=== PATIENT | female | born 1985 | race Caucasian/White ===

== ENCOUNTER 2018-03-21 17:40 | Emergency (ER) | payer BC ==
[2018-03-21 17:51] VITALS: BP 119/80
--- NOTE | 2018-03-21 18:28 | ED ---
Upper Extremity Pain - HPI Summary HPI Summary: [id number] patient presents with pain at the base of her right thumb over the past 4 days. She reports this was gradual in onset and has gotten progressively worse. No pain at rest however she notices pain is worse with opposing movements such as gripping her magallon to turn it in a door, etc. She denies any known acute injury however admits she uses her hands throughout the day at work, typing, etc. She has also been active at her local gym. She denies redness, swelling, numbness, tingling, weakness. No history of injury here. She has tried wearing an elastic wrist brace which believes is making it worse. She also admits to taking ibuprofen once this morning which did help the pain however since wearing off she notices pain again with certain movements account. Does not want additional ibuprofen at this time. Has not been able to rest her hands. - History of Current Complaint Chief Complaint: UCUpperExtremity Stated Complaint: WRIST PAIN Time Seen by Provider: 03/21/18 18:10 Hx Obtained From: Patient - Allergies/Home Medications Allergies/Adverse Reactions: Allergies Allergy/AdvReac Type Severity Reaction Status Date / Time azithromycin [From Zithromax] Allergy Hives Verified 03/21/18 17:51 Home Medications: Home Medications Ibuprofen 800 mg PO 03/21/18 [History] Multivitamin [Multivitamins] 03/21/18 [History] PMH/Surg Hx/FS Hx/Imm Hx Previously Healthy: Yes Endocrine/Hematology History: Denies: Hx Anticoagulant Therapy, Hx Blood Disorders, Autoimmune Disease Infectious Disease History: No Infectious Disease History: Denies: Traveled Outside the [place] in Last 30 Days - Social History Occupation: Employed Full-time - 5-6 days/week Lives: Dormitory/Roommates Alcohol Use: Rare Hx Substance Use: No Substance Use Type: Reports: None Hx Tobacco Use: Yes - quit 1 year ago Smoking Status (MU): Former Smoker Review of Systems Constitutional: Negative Negative: Fever, Chills Positive: no symptoms reported Positive: Arthralgia Skin: Negative Neurological: Negative Psychological: Normal All Other Systems Reviewed And Are Negative: Yes Physical Exam Triage Information Reviewed: Yes Vital Signs On Initial Exam: Initial Vitals Temp Pulse Resp BP Pulse Ox 98.9 F 61 18 119/80 97 03/21/18 17:45 03/21/18 17:45 10/30/18 17:45 03/21/18 17:45 03/21/18 17:45 Vital Signs Reviewed: Yes Appearance: Positive: Well-Appearing, No Pain Distress, Well-Nourished Skin: Positive: Warm, Skin Color Reflects Adequate Perfusion, Dry - no erythema , no ecchymosis, no lesions, no edema over the affected area Head/Face: Positive: Normal Head/Face Inspection Eyes: Positive: EOMI ENT: Positive: Hearing grossly normal Respiratory/Lung Sounds: Positive: Breath Sounds Present Cardiovascular: Positive: Pulses are Symmetrical in both Upper and Lower Extremities Musculoskeletal: Positive: Strength/ROM Intact - pain w/ resisted Rt thumb ROM w / extension and abduction (mild); (-) Finkelsteins, Pain @ - extensor tendon and base of thumb joint (basilar joint) TTP; no thenar eminance atrophy Neurological: Positive: Normal, Sensory/Motor Intact, Alert, Oriented to Person Place, Time, CN Intact II-III, Reflexes Intact Psychiatric: Positive: Normal Diagnostics - Vital Signs Vital Signs Temp Pulse Resp BP Pulse Ox 03/21/18 17:45 98.9 F 61 18 119/80 97 - Laboratory Lab Statement: Any lab studies that have been ordered have been reviewed, and results considered in the medical decision making process. Course/Dx - Course Course Of Treatment: wet read: no acute or chronic findings of the thumb - Diagnoses Provider Diagnoses: Thumb tendonitis Discharge - Sign-Out/Discharge Documenting (check all that apply): Patient Departure All imaging exams completed and their final reports reviewed: Yes - Discharge Plan Condition: Stable Disposition: HOME Patient Education Materials: Tendinitis (ED) Forms: *Work Release Referrals: Ronnie Martines MD [Primary Care Provider] - Additional Instructions: Rest, ice, wear splint during activities - gentle stretches while out of splint You may take ibuprofen with food and use topical analgesics such as biofreeze, arnica, etc for relief of pain/swelling Follow-up with occupational therapy to aid in recovery from injury - call tomorrow to schedule an appointment. If you need a referral, call your PCP. - Billing Disposition and Condition Condition: STABLE Disposition: Home - Attestation Statements Provider Attestation: I was available for consult. This patient was seen by the [facility]. The patient was not presented to, seen by, or examined by me. -Brooke
--- NOTE | 2018-03-21 20:38 | ED ---
Course/Dx - Course Course Of Treatment: wet read: no acute or chronic findings of the thumb - Diagnoses Provider Diagnoses: Thumb tendonitis Discharge - Sign-Out/Discharge Documenting (check all that apply): Post-Discharge Follow Up All imaging exams completed and their final reports reviewed: No - Discharge Plan Condition: Stable Disposition: HOME Patient Education Materials: Tendinitis (ED) Forms: *Work Release Referrals: Ronnie Martines MD [Primary Care Provider] - Additional Instructions: Rest, ice, wear splint during activities - gentle stretches while out of splint You may take ibuprofen with food and use topical analgesics such as biofreeze, arnica, etc for relief of pain/swelling Follow-up with occupational therapy to aid in recovery from injury - call tomorrow to schedule an appointment. If you need a referral, call your PCP. - Billing Disposition and Condition Condition: STABLE Disposition: Home
--- NOTE | 2018-03-22 07:50 | RAD ---
Indication: Right hand injury, right hand pain. 4 views of the right hand are reviewed. There is no fracture or dislocation. Joint spaces all well-preserved. No other bone or joint abnormality is identified. IMPRESSION: No fracture of the right hand is noted. R0
--- NOTE | 2018-03-22 10:00 | UC ---
- Progress Note Progress Note: RIGHT HAND XRAY RADIOLOGY REPORT REVIEWED. UNREMARKABLE. NO CHANGE IN MGMT. Course/Dx - Diagnoses Provider Diagnoses: Thumb tendonitis Discharge - Sign-Out/Discharge Documenting (check all that apply): Post-Discharge Follow Up All imaging exams completed and their final reports reviewed: Yes - Discharge Plan Condition: Stable Disposition: HOME Patient Education Materials: Tendinitis (ED) Forms: *Work Release Referrals: Ronnie Martines MD [Primary Care Provider] - Additional Instructions: Rest, ice, wear splint during activities - gentle stretches while out of splint You may take ibuprofen with food and use topical analgesics such as biofreeze, arnica, etc for relief of pain/swelling Follow-up with occupational therapy to aid in recovery from injury - call tomorrow to schedule an appointment. If you need a referral, call your PCP. - Billing Disposition and Condition Condition: STABLE Disposition: Home
== END 2018-03-21 19:29 | disposition home or self-care (01) ==
LOC: UCEAST 17:40
DX: M77.9 Enthesopathy, unspecified (principal); Z88.1 Allergy status to other antibiotic agents; Z87.891 Personal history of nicotine dependence
CPT/HCPCS: 99202; G0463